=== PATIENT | male | born 2000 | race Caucasian/White ===

== ENCOUNTER 2018-01-06 23:32 | Emergency (ER) | payer OTHER, SELFPAY ==
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
[2018-01-07 01:36] VITALS: BP 131/83; O2SAT 99
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
== END 2018-01-07 01:05 | disposition home or self-care (01) ==
LOC: ER 23:32
DX: S00.83XA Contusion of other part of head, initial encounter (principal); Y04.8XXA Assault by other bodily force, initial encounter; Y93.9 Activity, unspecified; Y92.9 Unspecified place or not applicable; F17.210 Nicotine dependence, cigarettes, uncomplicated
CPT/HCPCS: 70486; 76377; 99284